=== PATIENT | male | born 1950 | race Caucasian/White ===

== ENCOUNTER 2022-09-16 11:34 | Outpatient (REF) | payer BC, SELFPAY ==
--- NOTE | ~2022-09-16 | MR_ITS ---
EXAMINATION: MR BRAIN WITHOUT CONTRAST CLINICAL INFORMATION: Migraine. Dysarthria. Aphasia. COMPARISON: None available. TECHNIQUE: MRI of the brain was obtained using routine sequences without contrast. FINDINGS: No focal restricted diffusion is demonstrated to suggest acute or subacute cerebral ischemia. No evidence of acute or chronic hemorrhagic products on heme-sensitive imaging. Chronic lacunar infarct of the left lentiform nucleus and subinsula. Scattered and partially confluent periventricular, deep white matter, and brainstem T2 FLAIR hyperintensities consistent with moderate underlying microangiopathy. Proportional prominence of the ventricles and sulcal spaces without evidence of obstructive hydrocephalus. No abnormal mass effect. No midline shift. Normal appearance of the pituitary gland. Normal positioning of the cerebellar tonsils. Normal arterial and venous vascular flow voids are present. Normal, homogeneous marrow signal. Mild mucosal thickening of the paranasal sinuses. No signal abnormalities within the mastoids. MR/MR head/brain wo con IMPRESSION: 1. No acute intracranial abnormalities. 2. Moderate underlying microangiopathy and generalized cerebral volume loss. Chronic lacunar infarct of the left lentiform nucleus.
--- NOTE | ~2022-09-16 | XR_ITS ---
EXAMINATION: PRE-MRI screening CLINICAL INFORMATION: Pre-MRI COMPARISON: None TECHNIQUE: 3 views of the orbits FINDINGS: No radiopaque foreign body about the orbits. Visualized paranasal sinuses are clear. Bony structures are unremarkable. XR/XR pre mri screening IMPRESSION: No radiopaque foreign body about the orbits.
== END 2022-09-16 11:35 | disposition home or self-care (01) ==
LOC: HO.MRI 11:34
PROVIDERS: PCP Internal Medicine; Visit Provider Psychiatry & Neurology Neurology
DX: G43.109 Migraine with aura, not intractable, without status migrainosus (principal)
CPT/HCPCS: 70551

== ENCOUNTER 2025-02-26 09:00 | Outpatient (AMB) | payer BC, SELFPAY ==
--- NOTE | 2025-02-26 09:03 | MHC.OFFVIS ---
Vital Signs 02/26/25 09:12 02/26/25 09:34 Height 5 ft 9 in Weight 154 lb BMI 22.7 BP 158/80 H 122/74 Blood Pressure Location Rt brachial Lt brachial Position Sitting Sitting Pulse 66 Pulse Source Pulse Oximeter Pulse Oximetry (%) 100 Oxygen Delivery Method Room Air Comment manual BP Intake Visit Reasons: Colonoscopy Screening Intake Note: Patient new consult for pre Colonoscopy screening. Patient cc: C.O. intermittent constipation. No additional sx or concerns per pt at this time. Last colo 06/2020 via [facility]. Forensic Dna Analyst Required: No Accompanied by: Self / Same As Patient Allergies No Known Allergies Allergy (Verified 02/26/25 09:04) Medication List - Last Reconciled 02/26/25 by Diya Lee CNP doxepin 25 mg PO BEDTIME tadalafil 20 mg PO DAILY PRN tamsulosin 0.4 mg PO BEDTIME HPI HPI Colonoscopy Screening: Details: Patient is a 74-year-old male with PMH of BPH, hyperlipidemia, and insomnia. Referred by PCP for pre colonoscopy screening The patient presents for pre-colonoscopy evaluation. This will be the third colonoscopy, with prior procedures conducted in June 2020 and March 2017. A precancerous polyp was found during the 2016 colonoscopy, while the 2019 colonoscopy revealed diverticulosis and internal hemorrhoids but had compromised visualization due to fair bowel prep. The patient reports irregular bowel movements for the past 6?8 months, which is a change from prior daily regularity. Bowel movements occur 3?4 times per week, with periods of constipation followed by loose stools. Stool consistency varies between Pinson type 3, 4, and 6, described as soft and occasionally mushy. Pain sometimes accompanies constipation but resolves following bowel movements. The patient denies nausea, blood in stools, heartburn, or difficulty swallowing. He recently started taking Tamsulosin. The dietary history reveals fair fiber intake but occasionally aggravation from cheese and inconsistent hydration. He denies regular use of OTC medications for constipation. There is no significant change in physical activity, which remains moderate. Systemic symptoms include weight gain (~4 lbs) and sporadic high blood pressure readings. Blood pressure today measured 122/74 manually after an initial elevated reading. Patient denies: fever/chills or appetite changes. Social hx: -Diet: Regular intake of eggs, toast, cereal, yogurt, vegetables, cold cuts, balanced dinners including meat and vegetables. Avoids dessert but occasionally eats cheese, which aggravates constipation. Reports frequent processed cold cuts in the past but reduced intake. -Alcohol/Tobacco/Drug Use: Drinks beer several times weekly; denies tobacco or recreational drug use. 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 No occupational exposures relevant to GI health. -Exercise: Moderate physical activity includes working on projects, trimming hedges, and cycling (~3?4 times weekly). [facility] Medical History (Updated 02/26/25 @ 10:03 by Diya Lee CNP) Constipation Colon cancer screening Surgical History Hx of hand surgery Hx of colonoscopy Family History Mother HTN (hypertension) Father Myelodysplasia, 5q- syndrome Social History Household Members: Family Alcohol intake: current Alcohol intake frequency: 3 or more drinks per day Use of substances other than those prescribed or required for medical reasons: Yes Substance Use Type: Marijuana Review of Systems Const Reports as per HPI ENT Reports as per HPI Card Reports as per HPI Resp Reports as per HPI GI Reports as per HPI Reports as per HPI Physical Exam Vital Signs: Last Vital Signs Pulse 66 02/26/25 09:12 BP 158/80 H 02/26/25 09:12 Pulse Ox 100 02/26/25 09:12 Oxygen Delivery Method Room Air 02/26/25 09:12 BMI result Body Mass Index 22.7 Const General: healthy appearing, no acute distress and well developed Nutritional Appearance: average body habitus Orientation/consciousness: patient oriented x3 HEENT Head: Yes normal to inspection, Yes normocephalic and Yes atraumatic Face and sinus: Yes normal facial exam Eyes General: appearance normal, both eyes and all related structures Neck Neck: Yes normal visual inspection Resp Effort & Inspection: normal respiratory effort, able to speak in complete sentences, no tracheal deviation and symmetric chest movement Auscultation: clear to auscultation bilaterally Cardio Jugular venous distension: no JVD Rate: regular rate Rhythm: regular rhythm Heart sounds: S1 normal heart sound present, S2 normal heart sound present, no gallops and no murmurs GI Inspection: Yes normal to inspection, No distended and Yes G-tube present Palpation (GI): Soft to palpation, not firm, nontender and No hepatosplenomegaly present Auscultation: normoactive bowel sounds Neuro General: patient oriented x3 Gait exam (Neuro): Normal gait present Psych Appearance: grossly normal Mental Status: mental status grossly normal Speech and movement: Normal speech and movement present Affect: normal affect Attitude: cooperative Thought process: Normal thought process present Thought content: Normal thought content present Insight: Good insight present (Psych) Judgement: Good judgement present (Psych) Assessment & Plan Assessment & Plan (1) Colon cancer screening: Comment: 06/26/20 Colonoscopy complete with fair prep-diverticulosis of transverse colon, grade 1 internal hemorrhoids. 04/13/2017 colonoscopy Three sessile 3mm polyps, documented as tubular adenoma per PCP note. Pathology report not available Code(s): Z12.11 - Encounter for screening for malignant neoplasm of colon Category: Medical Plan: Patient presented copy of colonoscopy report scanned into chart. Due for polyp surveillance colonoscopy. Additional Testing: Colonoscopy. Packet provided detailing instructions. Medication Management: Prescribe Miralax split prep and laxative tablets. Submit prescription to [facility]. Patient educated on scheduling process, procedure preparation, including avoiding certain foods, ensuring clear liquid intake and following a low-residual diet at least two days before procedure, Advised on necessity for ride post-procedure due to sedation. Follow-Up: In-office appointment post-colonoscopy for review of findings and management of constipation. (2) Constipation: Code(s): K59.00 - Constipation, unspecified Category: Medical Qualifiers: Constipation type: unspecified constipation type Qualified Code(s): K59.00 - Constipation, unspecified Plan: Recent onset coinciding with Tamsulosin initiation, confirmed as potential medication side effect. Other contributing factors include irregular hydration and fiber intake. Additional Testing: None ordered at this time. Medication Management: Patient opts for dietary and lifestyle modifications over pharmaceutical intervention. Lifestyle Recommendations: Encourage fiber intake from fruits, vegetables, legumes, nuts, and grains. Highlight hydration importance. Provide handout on high-fiber foods. Promote exercise goal of 150 minutes weekly. Follow-Up: Assess for resolution or stabilization of symptoms at post-procedure visit. Plan Follow-up after endoscopy or sooner as needed Time: I spent a total of 45 minutes on the date of encounter which includes: Preparing to see the patient (reviewed previous documentation, test results and medical history) Performing a medically appropriate exam and/or evaluation Ordering medications, tests, and procedures Documenting clinical information in the health record Medications: New bisacodyl (Dulcolax (bisacodyl)) Take four tablets pre colonoscopy instructions 20 mg (4 x 5 mg) PO ONCE 4 tabs 0RF 1 day polyethylene glycol 3350 (Miralax) per colonoscopy prep instructions 238 grams PO ONCE 238 grams 0RF Coding Level of Care Code New Pt New Pt Level 4 (79046) Patient Type New Diagnoses Colon cancer screening Z12.11 Constipation, unspecified constipation type K59.00 Constipation type: unspecified constipation type
[2025-02-26 09:12] VITALS: BP 158/80; PULSE 66; O2SAT 100; BMI 22.7
[2025-02-26 09:34] VITALS: BP 122/74
== END 2025-02-26 09:44 | disposition home or self-care (01) ==
LOC: HO.HGI 09:00
PROVIDERS: PCP Internal Medicine; Visit Provider Nurse Practitioner Family
DX: Z01.818 Encounter for other preprocedural examination (principal); Z12.11 Encounter for screening for malignant neoplasm of colon; K59.00 Constipation, unspecified
CPT/HCPCS: S0285

== ENCOUNTER 2025-06-04 09:32 | Day surgery (SDC) | payer BC, SELFPAY ==
[2025-06-03 06:42] VITALS: BMI 22.7
--- NOTE | 2025-06-03 09:08 | HO.ANESPROP2 ---
Documented by User: Angella Ferreira NP 06/03/25 09:08 HPI - Anesthesia Eval Consult details Narrative: 74 yr old male for colonoscopy PMFSH Active Problems Active Problems: All Active Problems Constipation (Acute) Colon cancer screening (Acute) Past Medical History Medical History (Updated 06/04/25 @ 10:51 by Eunice Landry RN) Enlarged prostate Sleep apnea Constipation Colon cancer screening Family History Family History Mother HTN (hypertension) Father Myelodysplasia, 5q- syndrome Surgical History Surgical History (Updated 06/04/25 @ 10:52 by Eunice Landry RN) Hx of hand surgery Hx of hand surgery Hx of colonoscopy Social History Social History Household Members: Family Alcohol intake: current Alcohol intake frequency: 3 or more drinks per day Patient Tobacco Use Status: Never used Tobacco Use of substances other than those prescribed or required for medical reasons: No Substance Use Type: Marijuana Are you DNR?: No Advance Directives: No Advance Directives Information Provided: Yes Meds Allergies Allergy/AdvReac Type Severity Reaction Status Date / Time No Known Allergies Allergy Verified 06/04/25 10:53 Home Medications ?Medication ?Instructions ?Recorded ?Confirmed ?Last Taken ?Type doxepin 25 mg capsule 25 mg PO BEDTIME 02/26/25 06/03/25 Unknown History tadalafil 20 mg tablet 20 mg PO DAILY PRN erectile 02/26/25 06/03/25 Unknown History dysfunction tamsulosin 0.4 mg capsule 0.4 mg PO BEDTIME 02/26/25 06/03/25 Unknown History Exam Height,Weight and Vital Signs: Height 5 ft 9 in Weight 69.853 kg Documented by User: Frida Griffiths MD 06/04/25 12:16 PMF Past Medical History Medical History (Updated 06/04/25 @ 10:51 by Eunice Landry RN) Enlarged prostate Sleep apnea Constipation Colon cancer screening Family History Family History Mother HTN (hypertension) Father Myelodysplasia, 5q- syndrome Family history of problems with anesthesia: No Surgical History Surgical History (Updated 06/04/25 @ 10:52 by Eunice Landry RN) Hx of hand surgery Hx of hand surgery Hx of colonoscopy History of Problems with Anesthesia: No Social History Social History Household Members: Family Alcohol intake: current Alcohol intake frequency: 3 or more drinks per day Patient Tobacco Use Status: Never used Tobacco Use of substances other than those prescribed or required for medical reasons: No Substance Use Type: Marijuana Are you DNR?: No Advance Directives: No Advance Directives Information Provided: Yes Meds Allergies Allergy/AdvReac Type Severity Reaction Status Date / Time No Known Allergies Allergy Verified 06/04/25 10:53 Home Medications ?Medication ?Instructions ?Recorded ?Confirmed ?Last Taken ?Type doxepin 25 mg capsule 25 mg PO BEDTIME 02/26/25 06/03/25 Unknown History tadalafil 20 mg tablet 20 mg PO DAILY PRN erectile 02/26/25 06/03/25 Unknown History dysfunction tamsulosin 0.4 mg capsule 0.4 mg PO BEDTIME 02/26/25 06/03/25 Unknown History Exam Airway Mallampati Class: III (caps through out, bridge too front right) TM Dist: >3cm Neck ROM: Full Heart: rrr Lungs: cta Assessment and Plan Assessment Anesthesia Assessment: Anesthesia Plan Discussed and Chart Reviewed Final Anesthetic Review Family History of Problems with Anesthesia: No History of Problems with Anesthesia: No NPO: Yes ASA Class: II Final Preanesthetic Review: No Changes in Pt Med Stat, Meds/Allgs Chart Reviewed and Consent Obtained/Reviewed Patient Risk: Low Procedure Risk: Low Anesthetic Plan Anesthetic Plan: MAC: Disposition: Standard PACU
[2025-06-04 10:53] VITALS: BMI 22.6
[2025-06-04 11:02] VITALS: BP 150/74; PULSE 62; RESP 15; TEMP 36.7; O2SAT 99
--- NOTE | 2025-06-04 12:15 | MHC.SHP ---
Pre-Procedural Eval Section A - 24 Hr Update-Section A only Date of Service: 06/04/25 Section B - Complete if H&P > 30 days Chief Complaint: screening Relevant Family History (Specify if Yes): No Relevant Social History: None Present Medications: see Short Stay Collaborative assessment Medical History: Significant History (Constipation Colon cancer screening) History of Previous Operations: Relevant previous surgery/procedure and date(s) ( Hx of hand surgery Hx of colonoscopy) Allergies: Allergies Allergy/AdvReac Type Severity Reaction Status Date / Time No Known Allergies Allergy Verified 06/04/25 10:53 Review of Systems Sugical H&P ROS: Negative: Constitution, Cardiovascular, Respiratory, Neurological, Psychiatric, Hem-Onc, Allergic/Immunologic, Gastrointestinal, Genitourinary, Musculoskeletal, Integumentary, Endocrine and Eyes/Ears/Nose/Throat Exam Surgical H&P Exam: Normal: HEENT, Normal: Heart, Normal: Lungs, Normal: Extremities, Normal: Abdomen, Normal: Skin and Normal: Neurological Plan Diagnosis/Plan: Unchanged I have reviewed the history and physical and performed a pertinent physical examination on my patient. No changes have occurred unless specified. Time Spent With Patient Time: Total time managing care of this patient today ____ minutes.
--- NOTE | 2025-06-04 12:51 | HO.OPN-COLON ---
Colonoscopy Operative Note Operative Note Date of Service: 06/04/25 Narrative: Operative Information Procedure Description: Colonoscopy Indication: screening Anesthesia: MAC COLONOSCOPY Instrument: Olympus variable stiffness pediatric scope 190L Colonoscopy Monitoring: Vital signs and clinical assessment, continuous EKG monitoring, Pulse oximetry, Carbon Dioxide monitoring and blood pressure monitoring were done throughout the procedure. Colon withdrawal time was 10 minutes. Procedure: The patient was placed in the left lateral decubitis position and pre-procedure medications were administered. After a digital rectal examination of the ano-rectum, the video colonoscope was inserted into the rectum and advanced through the colon to the cecum/TI. The colonoscope was slowly withdrawn in a retrograde panoramic fashion and the colon mucosa was carefully examined including a retroflexed view of the rectum. Findings and interventions are described below. Procedure Difficulty: moderate Findings: Terminal Ileum-normal Cecum:normal Right sided retroflexion- normal Ascending Colon: normal Transverse Colon -normal Descending Colon: 10 mm sessile polyp removed with cold snare Sigmoid Colon: moderate diverticulosis Rectum: Retroflexion with small internal hemorrhoids seen, grade I, 10-12 mm sessile polyp removed with cold snare and x 1 clip applied for hemostasis Anorectum - normal Intervention: cold snare and clip Colon preparation: [place] Bowel Preparation Scale Right colon; 2 Transverse colon: 2 Left colon; 1-2 (0 = Unprepared colon segment with mucosa not seen due to solid stool that cannot be cleared. 1 = Portion of mucosa of the colon segment seen, but other areas of the colon segment not well seen due to staining, residual stool and/or opaque liquid. 2 = Minor amount of residual staining, small fragments of stool and/or opaque liquid, but mucosa of colon segment seen well. 3 = Entire mucosa of colon segment seen well with no residual staining, small fragments of stool or opaque liquid) Impression and Post Procedure Diagnosis: diverticulosis colon polyps x2 internal hemorrhoids Plan: High fiber diet leaflet Avoid straining at stool, epsom salts and sitz bath, anusol supps or cream Repeat Colonoscopy in 3-4 years due to polyps and some areas of fair prep on left or earlier if clinically indicated Above findings were reviewed with the patient and relevant handouts were provided if indicated.
[2025-06-04 12:54] VITALS: BP 122/72; PULSE 70; RESP 16; TEMP 36.7; O2SAT 97
[2025-06-04 13:09] VITALS: BP 136/70; PULSE 63; RESP 14; TEMP 37.2; O2SAT 99
== END 2025-06-04 13:26 | disposition home or self-care (01) ==
PROVIDERS: PCP Internal Medicine; Visit Provider Internal Medicine Gastroenterology
PROC: 0DJD8ZZ Inspection of Lower Intestinal Tract, Via Natural or Artificial Opening Endoscopic (ICD-10-PCS; CPT 45378; principal; 2025-06-04 12:50)
DX: Z12.11 Encounter for screening for malignant neoplasm of colon (principal); Z86.0101 Personal history of adenomatous and serrated colon polyps; K59.00 Constipation, unspecified; K57.30 Diverticulosis of large intestine without perforation or abscess without bleeding; D12.7 Benign neoplasm of rectosigmoid junction; D12.4 Benign neoplasm of descending colon
CPT/HCPCS: 45385; 45382; 88305; J2003; J2704

== ENCOUNTER → 2025-06-04 09:32 | Outpatient (BNV) | payer BC, SELFPAY | PROVIDERS: PCP Internal Medicine; Visit Provider Internal Medicine Gastroenterology | DX: Z12.11 Encounter for screening for malignant neoplasm of colon (principal); K63.5 Polyp of colon; K57.30 Diverticulosis of large intestine without perforation or abscess without bleeding; K64.0 First degree hemorrhoids | CPT/HCPCS: 45385 ==

== ENCOUNTER 2025-06-17 13:53 | Outpatient (AMB) | payer BC, SELFPAY ==
--- NOTE | 2025-06-17 13:54 | MHC.OFFVIS ---
Intake Visit Reasons: S/P [place] [facility] Intake Note: Patient follow up for Colonoscopy results. Patient denies any GI issues. [employer] Required: No Accompanied by: Self / Same As Patient Allergies No Known Allergies Allergy (Verified 06/04/25 10:53) HPI HPI S/P [place] Dowling: Details: Patient is a 74-year-old male with PMH of BPH, hyperlipidemia and insomnia. Telephonic FU to review results of recent colonoscopy. Pt describes resolution of prior intermittent sharp lower abd pain that occurred approx once weekly in the two months before colonoscopy; currently asymptomatic with no abd pain. BM pattern has returned to baseline, and no evidence of constipation. No reports of rectal bleeding, changes in BM, or other new GI sx. Denies sx of hemorrhoids (no pain, bleeding, or pruritus). Pt adheres to recommended dietary modifications, consumes nuts regularly, and has resumed intake of some fermented foods. No interim hospitalizations or urgent care visits reported. No med compliance issues noted. [facility] Medical History (Updated 06/17/25 @ 15:16 by Diya Lee CNP) Internal hemorrhoids Diverticulosis Tubular adenoma of colon Enlarged prostate Sleep apnea Constipation Colon cancer screening Surgical History Hx of hand surgery Hx of hand surgery Hx of colonoscopy Family History Mother HTN (hypertension) Father Myelodysplasia, 5q- syndrome Social History Household Members: Family Alcohol intake: current Alcohol intake frequency: 3 or more drinks per day Patient Tobacco Use Status: Never used Tobacco Substance Use Type: Marijuana Review of Systems Const Reports as per HPI ENT Reports as per HPI Card Reports as per HPI Resp Reports as per HPI GI Reports as per HPI Reports as per HPI Physical Exam Const General: no acute distress Orientation/consciousness: patient oriented x3 Resp Other: Normal breath sounds/voice sounds by phone, breathing effortless, no wheezing noted. Patient spoke in full sentences without difficulty. Neuro General: patient oriented x3 Psych Appearance: grossly normal Mental Status: mental status grossly normal Speech and movement: Normal speech and movement present Affect: normal affect Attitude: cooperative Thought process: Normal thought process present Thought content: Normal thought content present Insight: Good insight present (Psych) Judgement: Good judgement present (Psych) Results Reviewed Results Reviewed: Operative Note Date of Service: 06/04/25 Narrative: Operative Information Procedure Description: Colonoscopy Indication: screening Anesthesia: MAC COLONOSCOPY Instrument: Olympus variable stiffness pediatric scope 190L Colonoscopy Monitoring: Vital signs and clinical assessment, continuous EKG monitoring, Pulse oximetry, Carbon Dioxide monitoring and blood pressure monitoring were done throughout the procedure. Colon withdrawal time was 10 minutes. Procedure: The patient was placed in the left lateral decubitis position and pre-procedure medications were administered. After a digital rectal examination of the ano-rectum, the video colonoscope was inserted into the rectum and advanced through the colon to the cecum/TI. The colonoscope was slowly withdrawn in a retrograde panoramic fashion and the colon mucosa was carefully examined including a retroflexed view of the rectum. Findings and interventions are described below. Procedure Difficulty: moderate Findings: Terminal Ileum-normal Cecum:normal Right sided retroflexion- normal Ascending Colon: normal Transverse Colon -normal Descending Colon: 10 mm sessile polyp removed with cold snare Sigmoid Colon: moderate diverticulosis Rectum: Retroflexion with small internal hemorrhoids seen, grade I, 10-12 mm sessile polyp removed with cold snare and x 1 clip applied for hemostasis Anorectum - normal Intervention: cold snare and clip Colon preparation: Bucklin Bowel Preparation Scale Right colon; 2 Transverse colon: 2 Left colon; 1-2 (0 = Unprepared colon segment with mucosa not seen due to solid stool that cannot be cleared. 1 = Portion of mucosa of the colon segment seen, but other areas of the colon segment not well seen due to staining, residual stool and/or opaque liquid. 2 = Minor amount of residual staining, small fragments of stool and/or opaque liquid, but mucosa of colon segment seen well. 3 = Entire mucosa of colon segment seen well with no residual staining, small fragments of stool or opaque liquid) Impression and Post Procedure Diagnosis: diverticulosis colon polyps x2 internal hemorrhoids Plan: High fiber diet leaflet Avoid straining at stool, epsom salts and sitz bath, anusol supps or cream Repeat Colonoscopy in 3-4 years due to polyps and some areas of fair prep on left or earlier if clinically indicated Above findings were reviewed with the patient and relevant handouts were provided if indicated. PATHOLOGY: Collected: 06/04/25 Location: [facility] Received: 06/04/25 Diagnosis A. Colon, descending, polypectomy: Tubular adenoma; negative for high-grade dysplasia or carcinoma. B. Rectum, polypectomy: Tubular adenoma; negative for high-grade dysplasia or carcinoma. Clinical History Pre-Op Dx: Descending colon polyp Post-Op Dx: Rectal polyp Assessment & Plan Assessment & Plan (1) Tubular adenoma of colon: Comment: 06/04/25 Colonoscopy complete with good to fair (left ) prep- 10 mm TA ( Descending), moderate diverticulosis (Sigmoid), 10-12 mm TA and small internal, grade I (Rectum ). Per guidelines repeat in 3 years (2027). Code(s): D12.6 - Benign neoplasm of colon, unspecified Category: Medical Plan: Stable and appropriate post-polypectomy, asymptomatic. Size and histology (pre-cancerous) necessitate increased surveillance frequency. Additional testing: - None indicated at present. Medications: - No new meds required. Lifestyle Recommendations: - Continue high-fiber diet and hydration. Referrals / Coordination: - None currently indicated. Follow-Up Plan: - Repeat colonoscopy recommended in 3 yrs (2027) per guidelines for advanced adenoma. Sooner if sx recur. Routine as-needed FU. (2) Diverticulosis: Code(s): K57.90 - Diverticulosis of intestine, part unspecified, without perforation or abscess without bleeding Category: Medical Plan: Stable, asymptomatic. emphasize primary prevention of progression. Additional testing: - None warranted; monitor for new sx. Medications: - None indicated. Lifestyle Recommendations: - Maintain/reinforce high-fiber, well-hydrated diet. Encourage regular intake of nuts, seeds, and fermentables for gut microbiome support. - Provide reassurance re: nuts/seeds not contraindicated. Referrals / Coordination: - None needed. Follow-Up Plan: - Monitor for change/worsening (e.g., LLQ pain, fever, GI bleeding). Instructions provided re: when to seek care. (3) Internal hemorrhoids: Code(s): K64.8 - Other hemorrhoids Category: Medical Plan: - Remain asymptomatic, no tx required. Additional testing: - None indicated. Medications: - None needed. Lifestyle Recommendations: - Continue to avoid constipation, straining, excessive/prolonged sitting (taya. on toilet). - Encourage movement throughout day, minimize sedentary behavior. - Avoid heavy lifting as able. Referrals / Coordination: - None at present. Follow-Up Plan: - Monitor for new onset pain, bleeding, or pruritus. Educate re: sx of hemorrhoid flare. Plan Follow-up or sooner as needed Time: I spent a total of 20 minutes on the date of encounter which includes: Preparing to see the patient (reviewed previous documentation, test results and medical history) Performing a medically appropriate exam and/or evaluation Ordering medications, tests, and procedures Documenting clinical information in the health record Patient Instructions: Patient scheduled for telehealth visit. Acknowledges and consents to: -Understanding purpose/nature of telehealth -Aware of limitations vs. in-person exams -Privacy/confidentiality maintained per HIPAA -May stop visit anytime or request in-person care Coding Level of Care Code Established Pt Tele Est Pt Level 3 (08474) Patient Type Established Diagnoses Tubular adenoma of colon D12.6 Diverticulosis K57.90 Internal hemorrhoids K64.8
== END 2025-06-17 14:57 | disposition home or self-care (01) ==
LOC: HO.HGI 13:53
PROVIDERS: PCP Internal Medicine; Visit Provider Nurse Practitioner Family
DX: K63.5 Polyp of colon (principal); K57.90 Diverticulosis of intestine, part unspecified, without perforation or abscess without bleeding; K64.8 Other hemorrhoids
CPT/HCPCS: 98967